=== PATIENT | female | born 1975 | race Caucasian/White ===

== ENCOUNTER 2020-09-23 06:00 | Outpatient (RCR) | payer MEDICARE, MEDICAID, SELFPAY | END 2020-10-05 23:59 | disposition home or self-care (01) | LOC: MPT 06:00 | PROVIDERS: Referring Provider Nurse Practitioner; Visit Provider Nurse Practitioner | DX: M54.12 Radiculopathy, cervical region (principal) | CPT/HCPCS: 97162 ==

== ENCOUNTER 2023-08-02 10:22 | Outpatient (CLI) | payer MEDICARE, MEDICAID, SELFPAY ==
--- NOTE | 2023-08-02 10:00 | CT_ITS ---
WS: [id number] CT CHEST AND ABDOMEN WITH CONTRAST CONTRAST HISTORY: R19.02 - Left upper quadrant abdominal swelling, pain after eating. TECHNIQUE: Axial imaging is performed through the chest and abdomen with IV contrast. Sagittal and co brittnee reformats. All CT scans at [facility] use at least one of these dose optimization techn iques: automated exposure control; mA and/or kV adjustment per patient size (includes targeted exams where dose is matched to clinical indication); or iterative reconstruction. CONTRAST: Omnipaque 350; 100 mL IV. DLP: 549.18 mGy COMPARISON: 06/09/[address]: Benign granulomata. No mass or pneumonia. No pericardial or pleural effusions. Aberrant RIGHT subclavian artery. Normal size aorta and pulmonary artery. Normal size heart. No significant lymphadenopathy. Small hiatal hernia. Abdomen CT: Diffuse hepatic steatosis. Low-attenuation nodule in the peripheral LEFT lobe of the liver measures 7 .2 mm. This does not appear to be a simple cyst but could be a complex cyst or early neoplasm. There are additional areas of hepatic steatosis with sparing. Normal portal vein. Normal pancreas. Normal a drenal glands. Normal gallbladder. Mild diffuse cortical thinning RIGHT kidney with no obstruction. There are a few cysts very small sca ttered nonobstructing calcifications in the renal pelvis. LEFT kidney: Moderate hydronephrosis and proximal hydroureter of the LEFT kidney secondary to a 1.3 c m calcification in the proximal ureter causing the obstruction. This ureteral calcification extends o karoline a length of 1.8 cm. There is additional cortical thinning and scarring throughout the LEFT kidney . Prior gastric bypass. Diffuse constipation. No obstruction. Ventral abdominal wall hernia containing fat only. Osseous structures: Negative. IMPRESSION: 1. Moderate LEFT hydroureteronephrosis secondary to a large ureteral calcification of the proximal u reter. This calcification measures 1.3 x 1.8 cm. 2. Bilateral cortical thinning and scarring of of the kidneys. 3. Prior gastric bypass. 4. Hepatic steatosis. 5. Peripheral nodule LEFT lobe of the liver measures 7.2 mm will need to be further evaluated. Consi forrest MRI abdomen evaluation with and without contrast. Differential includes complex cysts and early n eoplasm or hemangioma. 6. Ventral abdominal wall hernia. 7. Aberrant RIGHT subclavian artery. Notified ROBERTA Castro at 08/02/2023 1:50 PM.
[2023-08-02] MEDS: iohexol 350 mg/mL 500 mL Btl (per mL) PO (11:05)
[2023-08-02] MEDS: iohexol 350 mg/mL 500 mL Btl (per mL) IV (11:22)
== END 2023-08-02 10:23 | disposition home or self-care (01) ==
PROVIDERS: Visit Provider Nurse Practitioner
DX: N13.30 Unspecified hydronephrosis (principal); N20.1 Calculus of ureter; K76.0 Fatty (change of) liver, not elsewhere classified; K43.9 Ventral hernia without obstruction or gangrene; R19.02 Left upper quadrant abdominal swelling, mass and lump; Z98.84 Bariatric surgery status
CPT/HCPCS: 71260; 74160; Q9967

== ENCOUNTER → 2023-09-21 14:32 | Outpatient (BNVA) | payer MEDICARE, MEDICAID, SELFPAY | PROVIDERS: PCP Nurse Practitioner; Visit Provider Nurse Practitioner | DX: N39.0 Urinary tract infection, site not specified (principal); E55.9 Vitamin D deficiency, unspecified | CPT/HCPCS: 80053; 81000; 82306; 87077; 87086; 87184 ==

== ENCOUNTER 2023-09-29 09:52 | Outpatient (CLI) | payer MEDICARE, MEDICAID, SELFPAY ==
--- NOTE | 2023-09-29 09:45 | CT_ITS ---
WS: [id number] CT ABDOMEN AND PELVIS NONCONTRAST HISTORY: N20.0 - Calculus of kidney TECHNIQUE: Imaging performed through the abdomen and pelvis. Coronal and sagittal reformats are submi tted. All CT scans at [facility] use at least one of these dose optimization techniques: auto mated exposure control; mA and/or kV adjustment per patient size (includes targeted exams where dose is matched to clinical indication); or iterative reconstruction. DLP: 426.73 mGy.cm COMPARISON: 08/02/2023 Lower thorax: Partially calcified granuloma at the medial RIGHT lung base. Heart size is normal. No p ericardial effusion. Small hiatal hernia. Liver: Normal size liver. Back steatosis. Previously described liver lesion cannot be identified on t his unenhanced exam. No bile duct dilatation. Gallbladder: Normal gallbladder. No pericholecystic fluid or cholelithiasis. No gallbladder wall thic kening. Pancreas: Normal size and attenuation. Normal pancreatic duct. No pancreatitis or mass. Spleen: Normal. Adrenal glands: Normal. No mass. Right kidney: Normal size kidney with mild cortical scarring. Nonobstructing calcifications. No hydro nephrosis. RIGHT ureter is not dilated. Left kidney: Normal size kidney. Mild improvement in the previously described hydronephrosis. The lar ge calcification at the UP junction has been fragmented. There are 2 small fragments with the largest measuring 4 mm in the proximal LEFT ureter causing persistent mild obstruction. Additional fragmente d calcifications gone retrograde into the renal pelvis with the largest fragment measuring 7 mm. No d istal ureteral calcification. Aorta: Mild atherosclerosis abdominal aorta with no aneurysm. No free fluid, intraperitoneal air or significant lymphadenopathy. GI tract: Gastric bypass. Marked constipation. No obstructive pattern. Normal appendix. Abdominal wall: Ventral abdominal wall hernia measures 3.1 cm at its orifice contains omentum only. Pelvis: Unremarkable. Osseous structures: Unremarkable. CT/CT kidney stone [id number] IMPRESSION: 1. Previously described LEFT UP junction calcification has been fragmented. Th ere are several smaller fragments with the largest measuring 4 mm remaining in the proximal LEFT ureter causing a mild obstruction and hydronephrosis. Additio nal fragmented components in the renal pelvis. 2. No hydronephrosis RIGHT kidney. Small nonobstructing calcifications. 3. Negative gallbladder. 4. Negative appendix. 5. Prior gastric bypass. 6. Diffuse constipation. 7. Ventral abdominal hernia contains omentum only.
== END 2023-09-29 09:53 | disposition home or self-care (01) ==
PROVIDERS: PCP Nurse Practitioner; Visit Provider Nurse Practitioner
DX: N20.0 Calculus of kidney (principal); J84.10 Pulmonary fibrosis, unspecified; K44.9 Diaphragmatic hernia without obstruction or gangrene; K76.0 Fatty (change of) liver, not elsewhere classified; N28.89 Other specified disorders of kidney and ureter; K59.00 Constipation, unspecified; K43.9 Ventral hernia without obstruction or gangrene; Z98.890 Other specified postprocedural states
CPT/HCPCS: 74176

== ENCOUNTER → 2023-09-29 11:24 | Outpatient (BNVA) | payer MEDICARE, MEDICAID, SELFPAY | PROVIDERS: PCP Nurse Practitioner; Referring Provider Nurse Practitioner; Visit Provider Nurse Practitioner | DX: R73.9 Hyperglycemia, unspecified (principal); N39.0 Urinary tract infection, site not specified; E11.9 Type 2 diabetes mellitus without complications; E16.2 Hypoglycemia, unspecified | CPT/HCPCS: 81000; 82962; 83036 ==

== ENCOUNTER → 2023-10-03 15:00 | Outpatient (BNVA) | payer MEDICARE, MEDICAID, SELFPAY | PROVIDERS: PCP Nurse Practitioner; Visit Provider Nurse Practitioner | DX: N39.0 Urinary tract infection, site not specified (principal) | CPT/HCPCS: 87086 ==

== ENCOUNTER → 2023-10-20 15:24 | Outpatient (BNVA) | payer MEDICARE, MEDICAID, SELFPAY | PROVIDERS: PCP Nurse Practitioner; Visit Provider Nurse Practitioner | DX: R51.9 Headache, unspecified (principal); H60.91 Unspecified otitis externa, right ear; B34.9 Viral infection, unspecified | CPT/HCPCS: 87426 ==

== ENCOUNTER → 2023-10-23 14:07 | Outpatient (BNVA) | payer MEDICARE, MEDICAID, SELFPAY | PROVIDERS: PCP Nurse Practitioner; Visit Provider Emergency Medicine | DX: R00.0 Tachycardia, unspecified (principal); R55 Syncope and collapse | CPT/HCPCS: 93005 ==

== ENCOUNTER → 2023-11-21 14:52 | Outpatient (BNVA) | payer MEDICARE, MEDICAID, SELFPAY | PROVIDERS: PCP Nurse Practitioner; Visit Provider Nurse Practitioner | DX: K76.9 Liver disease, unspecified (principal); R00.2 Palpitations; R53.83 Other fatigue; E53.8 Deficiency of other specified B group vitamins; Z21 Asymptomatic human immunodeficiency virus [HIV] infection status | CPT/HCPCS: 80048; 82607; 82746 ==

== ENCOUNTER → 2023-12-21 14:31 | Outpatient (BNVA) | payer MEDICARE, MEDICAID, SELFPAY | PROVIDERS: Absent Provider Nurse Practitioner; PCP Nurse Practitioner; Referring Provider Nurse Practitioner; Visit Provider Nurse Practitioner | DX: Z21 Asymptomatic human immunodeficiency virus [HIV] infection status (principal) | CPT/HCPCS: 86360; 87536 ==

== ENCOUNTER 2024-01-03 11:28 | Outpatient (CLI) | payer MEDICARE, SELFPAY ==
--- NOTE | 2024-01-03 11:40 | MR_ITS ---
WS: [id number] MRI ABDOMEN WITH AND WITHOUT CONTRAST. COMPARISON: CT 09/29/2023 and 08/02/2023 Multiplanar, multisequence imaging is performed with and without contrast. MultiHance 15 mL. Liver is normal size. No significant hepatic steatosis is identified by MRI. Portal vein and hepatic veins are normal. There is a subcapsular 5 mm T2 hyperintense and T1 hypointense mass which is likely a cyst. No enhancement of the cyst after contrast. No additional liver lesions. Normal gallbladder. Normal spleen. Normal common bile duct. The pancreas is normal. Kidneys are normal size. Mild cortical irregularities and a few small cortical cysts. None of these a reas enhance on the postcontrast imaging. There are areas of mild scarring and cortical thinning of e ach kidney. No obstruction. Mild atherosclerosis aorta. The visualized GI tract is negative. No ascites or pleural effusions. MR/MR abdomen wo/w con* [id number] IMPRESSION: 1. Benign LEFT lobe hepatic subcapsular cyst, 5 mm. 2. No renal obstruction. 3. Very tiny cortical cysts and cortical scarring within each kidney. No solid mass or obstruction. 4. No ascites or pleural effusions.
[2024-01-03] MEDS: gadobenate dimeglumine 20 mL vial 15 ML IV (12:43)
== END 2024-01-03 11:29 | disposition home or self-care (01) ==
LOC: RAD 11:30
PROVIDERS: PCP Nurse Practitioner; Visit Provider Nurse Practitioner
DX: K76.9 Liver disease, unspecified (principal); Q44.6 Cystic disease of liver
CPT/HCPCS: 74183; A9577

== ENCOUNTER → 2024-01-25 12:26 | Outpatient (BNVA) | payer MEDICARE, SELFPAY | PROVIDERS: PCP Nurse Practitioner; Referring Provider Nurse Practitioner; Visit Provider Internal Medicine Cardiovascular Disease | DX: I49.8 Other specified cardiac arrhythmias (principal); R94.31 Abnormal electrocardiogram [ECG] [EKG]; R07.9 Chest pain, unspecified | CPT/HCPCS: 93005 ==

== ENCOUNTER → 2024-02-16 13:53 | Outpatient (BNVA) | payer MEDICARE, MEDICAID, SELFPAY | PROVIDERS: PCP Nurse Practitioner; Visit Provider Nurse Practitioner | DX: R30.0 Dysuria (principal); N39.0 Urinary tract infection, site not specified | CPT/HCPCS: 81000; 87086 ==

== ENCOUNTER 2024-02-23 14:48 | Outpatient (CLI) | payer MEDICARE, MEDICAID, SELFPAY ==
--- NOTE | 2024-02-23 15:00 | USCV_ITS ---
Deyanira Duron Age: 48 Gender: F : 1975 Exam Date: 02/23/2024 15:05 Ordering Phys: Checo Cody MD ([email or web address]) Technologist: CT Exam Location: [facility] [place] Indication: BP: 139 / 94 HR: 84 Rhythm: Sinus Technical Quality: Adequate MEASUREMENTS (Male / Female) Normal Values 2D ECHO LVOT Diameter 2.1 cm LV Ejection Fraction MOD 4C 67.7 % LV Ejection Fraction MOD 2C 68.1 % LV Ejection Fraction 2C AL 69.4 % LA Diameter 2.9 cm RA Systolic Volume 4C AL 30.4 ml RA Systolic Volume 4C MOD 30.7 ml LA Sys Volume AL 43.6 cm cubed LA Sys Volume Index AL 23.5 cm cubed/m squared Aorta at Sinotubular Diameter 2.4 cm IVC Diameter 2.0 cm M-MODE LA Ao Ratio MM 1.2 AV Cusp Separation MM 2.0 cm DOPPLER AV Peak Velocity 130.0 cm/s LVOT Peak Velocity 106.0 cm/s AV Area Cont Eq vti 3.1 cm squared AV Area Cont Eq pk 2.9 cm squared MV Peak Velocity 113.0 cm/s MV Area PHT 3.6 cm squared Mitral E to A Ratio 0.8 TR Peak Velocity 279.5 cm/s TR Peak Gradient 31.2 mmHg TR Mean Velocity 197.0 cm/s TR Mean Gradient 18.4 mmHg TR Velocity Time Integral 64.3 cm TV Peak E Velocity 89.0 cm/s Right Atrial Pressure 3.0 mmHg Pulmonary Artery Systolic Pressu 34.2 mmHg PV Peak Velocity 120.0 cm/s FINDINGS Left Ventricle Normal left ventricular size, systolic function and wall thickness, with no regional wall motion abnormalities. Left ventricular ejection fraction is estimated at 60 %. Normal diastolic function. Right Ventricle The right ventricle is normal in size and function. Right Atrium The right atrium is normal in size. Left Atrium The left atrium is normal in size. Mitral Valve Structurally normal mitral valve without significant stenosis or prolapse. There is no mitral regurgitation. Aortic Valve Structurally normal aortic valve without significant sclerosis or stenosis. There is no aortic regurgitation. Tricuspid Valve Structurally normal tricuspid valve without significant stenosis or regurgitation. Pulmonary artery systolic pressure is normal. Pulmonic Valve Structurally normal pulmonic valve without significant stenosis. There is no pulmonic regurgitation. Pericardium Normal pericardium without effusion. Aorta Normal ascending aorta dimension. IVC The inferior vena cava appears normal. CONCLUSIONS CONCLUSIONS: 1. Normal left ventricular size, systolic function and wall thickness, with no regional wall motion abnormalities. Left ventricular ejection fraction is estimated at 60%. Normal left ventricular wall thickness. Normal diastolic filling pattern. 2. No significant chamber abnormalities. 3. No sigificant valve abnormalities. 4. There is no pericardial effusion. 5. There are no intracardiac masses. 6. Pulmonary artery systolic pressure is within normal limits. 7. Right atrial pressure is around 5 mm of mercury. Checo Cody MD (Electronically Signed) Final Date: 23 February 2024 19:27 S
== END 2024-02-23 14:49 | disposition home or self-care (01) ==
LOC: RAD 14:49
PROVIDERS: PCP Nurse Practitioner; Visit Provider Internal Medicine Cardiovascular Disease
DX: R06.02 Shortness of breath (principal)
CPT/HCPCS: 93306

== ENCOUNTER → 2024-03-06 10:49 | Outpatient (BNVA) | payer MEDICARE, MEDICAID, SELFPAY | PROVIDERS: PCP Nurse Practitioner; Referring Provider Nurse Practitioner; Visit Provider Surgery | DX: K21.9 Gastro-esophageal reflux disease without esophagitis (principal); K43.9 Ventral hernia without obstruction or gangrene | CPT/HCPCS: 99204 ==

== ENCOUNTER → 2024-07-18 11:31 | Outpatient (BNVA) | payer MEDICARE, MEDICAID, SELFPAY | PROVIDERS: PCP Nurse Practitioner; Visit Provider Internal Medicine Cardiovascular Disease | DX: R00.2 Palpitations (principal) | CPT/HCPCS: 99214 ==

== ENCOUNTER 2024-08-12 11:37 | Outpatient (CLI) | payer MEDICARE, MEDICAID, SELFPAY ==
[2024-08-12 11:47] VITALS: BMI 26.6
--- NOTE | 2024-08-12 11:47 | ECG_ITS ---
[employer] [facility] Test Date: 2024-08-12 Pat Name: Deyanira Duron Department: Room: Gender: Female Principal Associate: : 1975 Requested By: Checo Cody Order Number: [id number] Reading MD: CHECO CODY Interpretive Statements Lung unchanged pre/post procedure; Intraprocedure shortess of breath; Symptoms resoled by discharge EXERCISE DATA: The patient was exercised by Ottoniel protocol. Baseline heart rate was 70 beats per minute. Baseline blood pressure was 138/86 millimeters of mercury. Target heart rate was 170 beats per minute. Maximum heart rate achieved was 151, which was 88 % of the target heart rate. Maximum blood pressure was 181/86 millimeters of mercury. Total exercise time was 9 minutes 38 seconds. Maximum METs achieved was 13.5, maximum VO2 was 47.3. The reason for ending the test was maximum effort achieved. The patient complained of shortness of breath during the stress test, which then resolved at the end of the test. ELECTROCARDIOGRAM: BASELINE: Showed sinus rhythm, normal axis, no significant ST-T changes at the baseline noted. EXERCISE: At the peak exercise level, no significant ST-T changes suggestive of ischemia noted. RECOVERY: During the recovery period, heart rate dropped appropriately. No significant ST-T changes in the recovery suggestive of ischemia noted. CONCLUSION: 1. Exercise capacity good. 2. Heart rate response was appropriate. 3. Blood pressure response was appropriate. 4. Symptoms not suggestive of ischemia. 5. Electrocardiogram portion of the stress test was not suggestive of ischemia. Electronically Signed On 08-31-2024 17:30:00 CDT by CHECO CODY [email or web address]
[2024-08-12 12:14] VITALS: BP 148/77; PULSE 95
== END 2024-08-12 11:38 | disposition home or self-care (01) ==
LOC: CDL 11:38
PROVIDERS: PCP Nurse Practitioner; Visit Provider Internal Medicine Cardiovascular Disease
DX: R06.02 Shortness of breath (principal)
CPT/HCPCS: 93017

== ENCOUNTER → 2024-09-25 14:46 | Outpatient (BNVA) | payer MEDICARE, MEDICAID, SELFPAY | PROVIDERS: PCP Nurse Practitioner; Visit Provider Nurse Practitioner | DX: R25.2 Cramp and spasm (principal) | CPT/HCPCS: 80053; 83735; 85025 ==

== ENCOUNTER 2024-10-14 13:40 | Outpatient (CLI) | payer OTHER, MEDICAID, SELFPAY ==
--- NOTE | 2024-10-14 14:00 | US_ITS ---
WS: [id number] ULTRASOUND RENAL TECHNIQUE: Ultrasound examination of both kidneys. CLINICAL INFORMATION: Z87.442 - Personal history of urinary calculi COMPARISON: None. FINDINGS: RIGHT: Right kidney is normal in size and appearance. Echogenicity: Normal. Cortical thickness: 1.3 cm; Normal. Hydronephrosis: None. Perinephric fluid: None. Right kidney measures: 10.1 cm x 4.7 cm x 4.2 cm. LEFT: Few nonobstructing LEFT renal parenchymal calculi measuring 5 to 7 mm Echogenicity: Normal. Cortical thickness: 1.2 cm; Normal. Hydronephrosis: None. Perinephric fluid: None. Left kidney measures: 9.5 cm x 5.3 cm x 5.8 cm. Normal visualized aorta. US/US renal BI* [id number] IMPRESSION: 1. No hydronephrosis in either kidney. 2. Few nonobstructing LEFT renal parenchymal calculi measuring 5 to 7 mm. 3. Unremarkable bladder
== END 2024-10-14 13:41 | disposition home or self-care (01) ==
PROVIDERS: PCP Nurse Practitioner; Visit Provider Nurse Practitioner
DX: Z87.442 Personal history of urinary calculi (principal); N20.0 Calculus of kidney
CPT/HCPCS: 76770

== ENCOUNTER → 2024-10-31 13:41 | Outpatient (BNVA) | payer MEDICARE, MEDICAID, SELFPAY | PROVIDERS: PCP Nurse Practitioner; Referring Provider Nurse Practitioner; Visit Provider Nurse Practitioner | DX: R00.2 Palpitations (principal) | CPT/HCPCS: 80053 ==

== ENCOUNTER → 2025-02-19 10:38 | Outpatient (BNVA) | payer MEDICARE, SELFPAY | PROVIDERS: PCP Nurse Practitioner; Visit Provider Nurse Practitioner | DX: E55.9 Vitamin D deficiency, unspecified (principal); K21.9 Gastro-esophageal reflux disease without esophagitis | CPT/HCPCS: 80053; 82306; 82607; 82746; 85025 ==